=== PATIENT | male | born 1940 | race Caucasian/White ===

== ENCOUNTER 2017-08-20 12:13 | Day surgery (SDC) | payer MEDICARE, BC ==
[2017-08-20] MEDS ORDERED: ESTETAB3 PO (13:10)
[2017-08-20] MEDS ORDERED: CALC500T55 PO (13:10)
[2017-08-20] MEDS ORDERED: ASPI1TAB57 PO (13:10)
[2017-08-20] MEDS ORDERED: MUPIROCIN 2% OINT 1 APPLIC/GM SYR NASAL SCH (13:15)
[2017-08-20] MEDS ORDERED: NS 1000 ML IV SCH (13:15)
[2017-08-20] MEDS ORDERED: CHLORHEXIDINE GLUCONATE 2 % 1 PACK (2 CLOTHS) TOPICAL SCH (13:15)
[2017-08-20] MEDS ORDERED: VANCOMYCIN 1000 MG/NS 250 ML IV SCH ×2 (13:15)
[2017-08-20] MEDS ORDERED: POVIDONE IODINE 5% (ANTISEPSIS KIT) 4 APPLICATIONS EACH NARE SCH (13:15)
[2017-08-20] MEDS ORDERED: ceFAZolin 2 GM PREMIX 50 ML IV SCH (13:15)
[2017-08-20] MEDS ORDERED: MIDAZOLAM HCL 5 MG/ML VIAL (1 ML) ONE (13:33)
--- NOTE | 2017-08-20 15:11 | MP ---
cc: SEEMA GRIGGS DATE OF SURGERY: 08/20/2017 INDICATION CVA, evaluation for atrial fibrillation. PROCEDURE PERFORMED 1. Placement of Medtronic Reveal LINQ MRI compatible loop monitor. 2. Moderate sedation. EQUIPMENT USED Medtronic Reveal LINQ MRI compatible loop monitor. Serial number [id number]. MEDICATIONS Versed IV, fentanyl IV. PROCEDURE After the patient was sedated, the left anterior chest was prepped and draped in the usual sterile manner. Local anesthesia was applied. Medtronic Reveal LINQ MRI compatible monitor was placed without difficulty to the anterior chest. R-wave was 0.72 mV. The patient remained stable and was discharged home in stable condition. DIAGNOSIS Successful placement of Medtronic Reveal LINQ MRI compatible loop monitor. DISPOSITION Mr. Schofield will continue his current medical program. We will initiate long-term monitoring of his device. I will see him back for followup in our office after discharge. MD KAVITHA Spivey/AYAZ /2:06 PM /2:57 PM MTDTc
== END 2017-08-20 15:05 | disposition home or self-care (01) ==
LOC: HDOC 12:13 → HDIC 12:13 → HDOC 15:05
PROVIDERS: ATTEND Internal Medicine Interventional Cardiology
DX: I63.442 Cerebral infarction due to embolism of left cerebellar artery (principal); I51.7 Cardiomegaly; I34.0 Nonrheumatic mitral (valve) insufficiency; I36.1 Nonrheumatic tricuspid (valve) insufficiency
CPT/HCPCS: 33282; C1764; J2250; J3010